=== PATIENT | female | born 1990 ===

== ENCOUNTER 2021-04-16 13:00 | Inpatient (IN) | payer OTHER ==
[~2021-04-16] VITALS: Ht 165.1 cm; Wt 65.8 kg
== END 2021-04-19 14:10 | disposition home or self-care (01) | DRG 743 ==
LOC: EDSTATUS 13:00 → OB/GYN 04-17 09:42 → O/R 04-17 09:42 → OB/GYN 04-17 11:00 → CIR.AMB 04-17 13:00 → EDSTATUS 04-17 13:00 → OB/GYN 04-17 23:45
PROVIDERS: ADMIT Specialist; ATTEND Specialist
PROC: 0UB90ZZ Excision of Uterus, Open Approach (ICD-10-PCS; principal; 2021-04-17 11:00)
PROC: 0UDB8ZZ Extraction of Endometrium, Via Natural or Artificial Opening Endoscopic (ICD-10-PCS; 2021-04-17 11:00)
DX: D25.9 Leiomyoma of uterus, unspecified (principal); D26.1 Other benign neoplasm of corpus uteri